=== PATIENT | male | born 1955 | race Caucasian/White ===

== ENCOUNTER 2021-05-20 10:47 | Inpatient (IN) | payer MEDICARE ==
[2021-05-20] MEDS ORDERED: Dexamethasone 10 MG/ML SDV IVPUSH ONE (11:29)
--- NOTE | 2021-05-20 11:31 | EDM.PDOC ---
ED HPI GENERAL MEDICAL PROBLEM - General Chief Complaint: Respiratory Problem Stated Complaint: HARD TO BREATH Time Seen by Provider: 05/20/21 11:16 Source of Information: Reports: Patient History Limitations: Reports: No Limitations - History of Present Illness INITIAL COMMENTS - FREE TEXT/NARRATIVE: Patient is a 66-year-old male who presents today for shortness of breath and diffuse body aches. Patient concerned he has Covid. Patient is unvaccinated. Patient dates he been coughing as well but not any fevers or chills. He denies any smoking history. Patient denies any abdominal pain nausea vomiting states has been able to tolerate large amounts of fluids. abdomen Pain Score (Numeric/FACES): 8 - Related Data Allergies Allergy/AdvReac Type Severity Reaction Status Date / Time No Known Allergies Allergy Verified 05/20/21 11:22 Home Meds: Home Meds amLODIPine [Norvasc] 2.5 mg PO DAILY 05/20/21 [History] Past Medical History - Past Health History Medical/Surgical History: Denies Medical/Surgical History Cardiovascular History: Reports: Hypertension Social & Family History - Tobacco Use Tobacco Use Status *Q: Never Tobacco User - Recreational Drug Use Recreational Drug Use: No ED ROS GENERAL - Review of Systems Review Of Systems: See Below Constitutional: Reports: No Symptoms HEENT: Reports: No Symptoms Respiratory: Reports: Shortness of Breath Cardiovascular: Reports: No Symptoms Endocrine: Reports: No Symptoms GI/Abdominal: Reports: No Symptoms : Reports: No Symptoms Musculoskeletal: Reports: No Symptoms Skin: Reports: No Symptoms Neurological: Reports: No Symptoms Psychiatric: Reports: No Symptoms Hematologic/Lymphatic: Reports: No Symptoms Immunologic: Reports: No Symptoms ED EXAM, GENERAL - Physical Exam Exam: See Below Exam Limited By: No Limitations General Appearance: Alert, WD/WN, No Apparent Distress Throat/Mouth: Normal Inspection Neck: Normal Inspection Respiratory/Chest: No Respiratory Distress, Lungs Clear, Normal Breath Sounds Cardiovascular: Normal Peripheral Pulses, Regular Rate, Rhythm GI/Abdominal: Normal Bowel Sounds, Soft, Non-Tender Extremities: Normal Inspection Neurological: Alert, Oriented, Normal Cognition #1 Interpretation EKG Date: 05/20/21 Time: 11:18 Rhythm: Other (sinus tach) Rate (Beats/Min): 101 ST-T: Normal Course - Vital Signs Last Recorded V/S: Last Vital Signs Temp 97.1 F 05/20/21 11:19 Pulse 98 05/20/21 12:17 Resp 18 05/20/21 11:19 BP 140/86 05/20/21 12:17 Pulse Ox 96 05/20/21 12:17 - Orders/Labs/Meds Orders: Active Orders 24 hr Category Date Time Status Patient Status [ADT] Routine ADT 05/20/21 12:57 Ordered CORONAVIRUS COVID-19 JOANN [MOLEC] Stat Lab 05/20/21 12:07 Received Labs: Laboratory Tests 05/20/21 05/20/21 Range/Units 12:07 12:07 WBC 6.83 (4.0-11.0) K/uL RBC 4.82 (4.50-5.90) M/uL Hgb 14.6 (13.0-17.0) g/dL Hct 41.7 (38.0-50.0) % MCV 86.5 (80.0-98.0) fL MCH 30.3 (27.0-32.0) pg MCHC 35.0 (31.0-37.0) g/dL RDW Std Deviation 44.3 (28.0-62.0) fl RDW Coeff of Luh 14 (11.0-15.0) % Plt Count 257 (150-400) K/uL MPV 9.70 (7.40-12.00) fL Neut % (Auto) 80.9 H (48.0-80.0) % Lymph % (Auto) 9.5 L (16.0-40.0) % [place] % (Auto) 9.5 (0.0-15.0) % Eos % (Auto) 0.0 (0.0-7.0) % Baso % (Auto) 0.1 (0.0-1.5) % Neut # (Auto) 5.5 (1.4-5.7) K/uL Lymph # (Auto) 0.7 (0.6-2.4) K/uL [place] # (Auto) 0.7 (0.0-0.8) K/uL Eos # (Auto) 0.0 (0.0-0.7) K/uL Baso # (Auto) 0.0 (0.0-0.1) K/uL Nucleated RBC % 0.0 /100WBC Nucleated RBCs # 0 K/uL Sodium 129 L (136-148) mmol/L Potassium 4.6 (3.5-5.1) mmol/L Chloride 93 L (98-107) mmol/L Carbon Dioxide 29.4 (21.0-32.0) mmol/L BUN 12 (7.0-18.0) mg/dL Creatinine 1.2 (0.8-1.3) mg/dL Est Cr Clr Drug Dosing 55.85 mL/min Estimated GFR (MDRD) > 60.0 ml/min Glucose 115 H (74-106) mg/dL Calcium 8.1 L (8.5-10.1) mg/dL Phosphorus 3.5 (2.6-4.7) mg/dL Magnesium 2.3 (1.8-2.4) mg/dL Total Bilirubin 0.5 (0.2-1.0) mg/dL AST 38 H (15-37) IU/L ALT 38 (14-63) IU/L Alkaline Phosphatase 67 (46-116) U/L Troponin I < 0.050 (0.000-0.056) ng/mL Total Protein 7.1 (6.4-8.2) g/dL Albumin 3.1 L (3.4-5.0) g/dL Globulin 4.0 (2.6-4.0) g/dL Albumin/Globulin Ratio 0.8 L (0.9-1.6) Lipase 90 (73-393) U/L Meds: Medications Discontinued Medications Generic Name Dose Route Start Last Admin Trade Name Freq PRN Reason Stop Dose Admin Dexamethasone 10 mg 05/20/21 11:29 05/20/21 12:14 Dexamethasone 10 Mg/Ml Sdv IVPUSH 05/20/21 11:30 10 mg ONETIME ONE Administration - Re-Assessments/Exams Free Text/Narrative Re-Assessment/Exam: 05/20/21 12:57 Patient oxygen level is still 95% nasal cannula. Patient will be admitted to the hospital for his hypoxia. Departure - Departure Time of Disposition: 12:58 Disposition: Admitted As Inpatient 65 Condition: Good Clinical Impression: Hypoxia, COVID - Discharge Information *PRESCRIPTION DRUG MONITORING PROGRAM REVIEWED*: Not Applicable *COPY OF PRESCRIPTION DRUG MONITORING REPORT IN PATIENT TL: Not Applicable Referrals: PCP,None [Primary Care Provider] - Forms: ED Department Discharge Sepsis Event Note (ED) - Evaluation Sepsis Screening Result: No Definite Risk - Focused Exam Vital Signs: Vital Signs Temp Pulse Resp BP Pulse Ox 05/20/21 12:17 98 140/86 96 05/20/21 11:48 103 H 145/86 H 95 05/20/21 11:20 95 05/20/21 11:19 97.1 F 115 H 18 134/86 88 L - My Orders Last 24 Hours: My Active Orders 05/20/21 12:07 CORONAVIRUS COVID-19 JOANN [MOLEC] Stat 05/20/21 12:57 Patient Status [ADT] Routine - Assessment/Plan Last 24 Hours: My Active Orders 05/20/21 12:07 CORONAVIRUS COVID-19 JOANN [MOLEC] Stat 05/20/21 12:57 Patient Status [ADT] Routine Plan: Patient is a 66-year-old male who presents today for body aches cough and concerns of Covid. Will obtain labs x-ray Covid and give Decadron and likely admit this patient satting 80% room air requiring 2 L of nasal cannula now up to 98%.
[2021-05-20 12:39] LABS: BLOOD UREA NITROGEN,BUN 12 mg/dL (7.0-18.0); CARBON DIOXIDE,CO2 29.4 mmol/L (21.0-32.0); CHLORIDE,CL 93 mmol/L (98-107); GLUCOSE RANDOM 115 mg/dL (74-106); LIPASE 90 U/L (73-393); POTASSIUM,K 4.6 mmol/L (3.5-5.1); SODIUM,NA 129 mmol/L (136-148)
--- NOTE | 2021-05-20 12:46 | CR ---
Indication: Cough. Evaluate for COVID-19 pneumonia. Technique: Chest one-view portable upright. Comparison: None. Findings: There is a linear opacity at the left lung base, which could represent atelectasis or scar. The imaging findings are not typical for COVID-19 pneumonia. Similar findings are seen in the right lung base. Heart size and pulmonary vasculature within normal limits. Lateral costophrenic sulci are sharp. Impression: 1. Bibasilar opacities, which could represent atelectasis or scarring. 2. Imaging findings are not typical for COVID-19 pneumonia. Dictated by Tucker Butler MD @ 05/20/2021 12:46:[address] Tucker Butler @ May 20 2021 12:46PM
[2021-05-20] MEDS ORDERED: Sodium Chloride 0.9% 500 ML IV ONE (17:00)
[2021-05-20] MEDS ORDERED: Acetaminophen 325 MG Tab PO PRN (17:01)
--- NOTE | 2021-05-20 17:10 | PCM.HP.2 ---
H&P History of Present Illness - General Date of Service: 05/20/21 Admit Problem/Dx: Admission Diagnosis/Problem Admission Diagnosis/Problem Hypoxia - History of Present Illness Initial Comments - Free Text/Narative: 66 yo male with pmh of hypertension who presented to the ED with complaints of shortness of breath, cough, chills, and fatigue for six days. Chest x-ray reports bibasilar opacities. Patient was requring 2 L O2 via NC to keep sats above 90%. abdomen Pain Score (Numeric/FACES): 8 - Related Data Allergies/Adverse Reactions: Allergies Allergy/AdvReac Type Severity Reaction Status Date / Time Penicillins Allergy Rash Verified 05/20/21 16:52 Home Medications: Home Meds amLODIPine [Norvasc] 2.5 mg PO DAILY 05/20/21 [History] Past Medical History - Past Health History Medical/Surgical History: Denies Medical/Surgical History HEENT History: Reports: Hard of Hearing Cardiovascular History: Reports: Hypertension Social & Family History - Family History Family Medical History: No Pertinent Family History - Tobacco Use Tobacco Use Status *Q: Former Tobacco User Used Tobacco, but Quit: Yes Month/Year Tobacco Last Used: 1989 Second Hand Smoke Exposure: No - Caffeine Use Caffeine Use: Reports: Coffee - Alcohol Use Days Per Week of Alcohol Use: 7 Number of Drinks Per Day: 5 Total Drinks Per Week: 35 Date of Last Drink: 05/19/21 Time of Last Drink: 21:00 - Recreational Drug Use Recreational Drug Use: No H&P Review of Systems - Review of Systems: Review Of Systems: Comprehensive ROS is negative, except as noted in HPI. Exam - Exam Exam: See Below - Vital Signs Vital Signs: Last Vital Signs Temp 36.6 C 05/20/21 16:30 Pulse 90 05/20/21 16:30 Resp 16 05/20/21 16:30 BP 140/84 05/20/21 16:30 Pulse Ox 92 L 05/20/21 16:30 Weight: 73.709 kg - Exam General: Alert, Oriented HEENT: Mucosa Moist & [place] Lungs: Normal Respiratory Effort, Rhonchi Cardiovascular: Regular Rate, Regular Rhythm GI/Abdominal Exam: Normal Bowel Sounds, Soft, Non-Tender Extremities: Non-Tender, No Pedal Edema Skin: Warm, Dry, Intact Neurological: Cranial Nerves Intact. No: Focal Deficit - Patient Data Lab Results Last 24 hrs: Laboratory Results - last 24 hr 05/20/21 05/20/21 05/20/21 Range/Units 12:07 12:07 12:07 WBC 6.83 (4.0-11.0) K/uL RBC 4.82 (4.50-5.90) M/uL Hgb 14.6 (13.0-17.0) g/dL Hct 41.7 (38.0-50.0) % MCV 86.5 (80.0-98.0) fL MCH 30.3 (27.0-32.0) pg MCHC 35.0 (31.0-37.0) g/dL RDW Std Deviation 44.3 (28.0-62.0) fl RDW Coeff of Luh 14 (11.0-15.0) % Plt Count 257 (150-400) K/uL MPV 9.70 (7.40-12.00) fL Neut % (Auto) 80.9 H (48.0-80.0) % Lymph % (Auto) 9.5 L (16.0-40.0) % [place] % (Auto) 9.5 (0.0-15.0) % Eos % (Auto) 0.0 (0.0-7.0) % Baso % (Auto) 0.1 (0.0-1.5) % Neut # (Auto) 5.5 (1.4-5.7) K/uL Lymph # (Auto) 0.7 (0.6-2.4) K/uL [place] # (Auto) 0.7 (0.0-0.8) K/uL Eos # (Auto) 0.0 (0.0-0.7) K/uL Baso # (Auto) 0.0 (0.0-0.1) K/uL Nucleated RBC % 0.0 /100WBC Nucleated RBCs # 0 K/uL Sodium 129 L (136-148) mmol/L Potassium 4.6 (3.5-5.1) mmol/L Chloride 93 L (98-107) mmol/L Carbon Dioxide 29.4 (21.0-32.0) mmol/L BUN 12 (7.0-18.0) mg/dL Creatinine 1.2 (0.8-1.3) mg/dL Est Cr Clr Drug Dosing 55.85 mL/min Estimated GFR (MDRD) > 60.0 ml/min Glucose 115 H (74-106) mg/dL Calcium 8.1 L (8.5-10.1) mg/dL Phosphorus 3.5 (2.6-4.7) mg/dL Magnesium 2.3 (1.8-2.4) mg/dL Total Bilirubin 0.5 (0.2-1.0) mg/dL AST 38 H (15-37) IU/L ALT 38 (14-63) IU/L Alkaline Phosphatase 67 (46-116) U/L Troponin I < 0.050 (0.000-0.056) ng/mL Total Protein 7.1 (6.4-8.2) g/dL Albumin 3.1 L (3.4-5.0) g/dL Globulin 4.0 (2.6-4.0) g/dL Albumin/Globulin Ratio 0.8 L (0.9-1.6) Lipase 90 (73-393) U/L SARS-CoV-2 RNA (JOANN) POSITIVE H (NEGATIVE) Result Diagrams: 05/20/21 12:07 05/20/21 12:07 Sepsis Event Note - Evaluation Sepsis Screening Result: No Definite Risk - Focused Exam Vital Signs: Vital Signs Temp Pulse Resp BP Pulse Ox 05/20/21 16:30 36.6 C 90 16 140/84 92 L 05/20/21 15:23 36.5 C 90 16 146/81 H 92 L 05/20/21 14:16 85 16 128/86 97 05/20/21 12:17 98 140/86 96 05/20/21 11:48 103 H 145/86 H 95 05/20/21 11:20 95 05/20/21 11:19 36.2 C 115 H 18 134/86 88 L Problem List Initiated/Reviewed/Updated: Yes Orders Last 24hrs: Active Orders 24 hr Category Date Time Status Patient Status [ADT] Routine ADT 05/20/21 12:57 Active Antiembolic Devices [RC] PER UNIT ROUTINE Care 05/20/21 17:04 Ordered Oxygen Therapy [RC] PRN Care 05/20/21 17:01 Ordered Up ad Dara [RC] ASDIRECTED Care 05/20/21 17:01 Ordered VTE/DVT Education [RC] PER UNIT ROUTINE Care 05/20/21 17:01 Ordered Vital Signs [RC] Q4H Care 05/20/21 17:01 Ordered Regular Diet [DIET] Diet 05/20/21 Dinner Active CBC WITH AUTO DIFF [HEME] AM Lab 05/21/21 05:11 Ordered CBC WITH AUTO DIFF [HEME] AM Lab 05/22/21 05:11 Ordered CBC WITH AUTO DIFF [HEME] AM Lab 05/23/21 05:11 Ordered CBC WITH AUTO DIFF [HEME] AM Lab 05/24/21 05:11 Ordered CBC WITH AUTO DIFF [HEME] AM Lab 05/25/21 05:11 Ordered COMPREHENSIVE METABOLIC PN,CMP [CHEM] AM Lab 05/21/21 05:11 Ordered COMPREHENSIVE METABOLIC PN,CMP [CHEM] AM Lab 05/22/21 05:11 Ordered COMPREHENSIVE METABOLIC PN,CMP [CHEM] AM Lab 05/23/21 05:11 Ordered COMPREHENSIVE METABOLIC PN,CMP [CHEM] AM Lab 05/24/21 05:11 Ordered COMPREHENSIVE METABOLIC PN,CMP [CHEM] AM Lab 05/25/21 05:11 Ordered Acetaminophen [TylenoL] Med 05/20/21 17:01 Ordered 650 mg PO Q4H PRN Enoxaparin [Lovenox] Med 05/20/21 17:15 Ordered 40 mg SUBCUT Q24H Remdesivir 100 mg Med 05/21/21 17:00 Ordered Sodium Chloride 0.9% [Normal Saline] 100 ml IV Q24H Remdesivir 200 mg Med 05/20/21 16:56 Ordered Sodium Chloride 0.9% [Normal Saline] 250 ml IV ONETIME Sodium Chloride 0.9% [Normal Saline] 500 ml Med 05/20/21 17:00 Ordered IV .BOLUS amLODIPine [Norvasc] Med 05/21/21 09:00 Ordered 2.5 mg PO DAILY dexAMETHasone Med 05/21/21 09:00 Ordered 6 mg PO DAILY Sequential Compression Device [OM.PC] Per Unit Routine Oth 05/20/21 17:02 Ordered Resuscitation Status Routine Resus Stat 05/20/21 17:01 Ordered Medication Orders Acetaminophen (Acetaminophen 325 Mg Tab) 650 mg PO Q4H PRN PRN Reason: Pain (Mild 1-3)/fever Amlodipine Besylate (Amlodipine 2.5 Mg Tab) 2.5 mg PO DAILY MAKAYLA Dexamethasone (Dexamethasone 4 Mg Tab) 6 mg PO DAILY [facility] Enoxaparin Sodium (Enoxaparin 40 Mg/0.4 Ml Syringe) 40 mg SUBCUT Q24H [facility] Remdesivir 200 mg/ Sodium (Chloride) 250 mls @ 250 mls/hr IV ONETIME ONE Stop: 05/20/21 16:57 Remdesivir 100 mg/ Sodium (Chloride) 100 mls @ 100 mls/hr IV Q24H MAKAYLA Stop: 05/24/21 17:59 Sodium Chloride (Normal Saline) 500 mls @ 125 mls/hr IV .BOLUS [facility] Assessment/Plan Comment:: 66 yo mal admitted for acute hypoxic respiratory failure due to COVID viral pneumona. We will treat with dexamthasone and remdesivir. Will place on lovenox for DVT prophylaxis.
[2021-05-20] MEDS ORDERED: REMDESIVIR 200 MG in Sodium Chloride 0.9% 250 ML IV ONE ×2 (17:30→20:00)
[2021-05-20] MEDS: Enoxaparin 40 MG/0.4 ML Syringe SUBCUT SCH (17:58)
[2021-05-21 06:52] LABS: BLOOD UREA NITROGEN,BUN 15 mg/dL (7.0-18.0); CARBON DIOXIDE,CO2 26.5 mmol/L (21.0-32.0); CHLORIDE,CL 97 mmol/L (98-107); GLUCOSE RANDOM 136 mg/dL (74-106); POTASSIUM,K 4.4 mmol/L (3.5-5.1); SODIUM,NA 133 mmol/L (136-148)
[2021-05-21] MEDS: amLODIPine 2.5 MG Tab PO SCH (09:26)
[2021-05-21] MEDS: Dexamethasone 4 MG Tab PO SCH (09:26)
--- NOTE | 2021-05-21 16:24 | PCM.PN ---
- General Info Date of Service: 05/21/21 Admission Dx/Problem (Free Text): Admission Diagnosis/Problem Admission Diagnosis/Problem Hypoxia Subjective Update: Patient seen at bedside, no acute distress, feels better today but continues to have generalized weakness and fatigue. Functional Status: Reports: Tolerating Diet, Ambulating - Review of Systems General: Reports: Weakness, Fatigue, Malaise. Denies: Fever Pulmonary: Reports: Cough, Sputum. Denies: Shortness of Breath Gastrointestinal: Denies: Abdominal Pain, Constipation Genitourinary: Denies: Dysuria, Frequency, Burning Musculoskeletal: Denies: Neck Pain, Shoulder Pain, Arm Pain Skin: Denies: Cyanosis, Jaundice, Mottled - Patient Data Vitals - Most Recent: Last Vital Signs Temp 36.7 C 05/21/21 12:33 Pulse 81 05/21/21 12:33 Resp 18 05/21/21 12:33 BP 133/74 05/21/21 12:33 Pulse Ox 92 L 05/21/21 12:33 Weight - Most Recent: 73.709 kg I&O - Last 24 Hours: Intake & Output 05/21/21 05/21/21 05/21/21 06:59 14:59 22:59 Intake Total 1650 Balance 1650 Lab Results Last 24 Hours: Laboratory Results - last 24 hr 05/21/21 05/21/21 Range/Units 06:00 06:00 WBC 4.43 (4.0-11.0) K/uL RBC 4.77 (4.50-5.90) M/uL Hgb 14.2 (13.0-17.0) g/dL Hct 41.3 (38.0-50.0) % MCV 86.6 (80.0-98.0) fL MCH 29.8 (27.0-32.0) pg MCHC 34.4 (31.0-37.0) g/dL RDW Std Deviation 44.3 (28.0-62.0) fl RDW Coeff of Luh 14 (11.0-15.0) % Plt Count 299 (150-400) K/uL MPV 9.90 (7.40-12.00) fL Neut % (Auto) 75.2 (48.0-80.0) % Lymph % (Auto) 14.2 L (16.0-40.0) % [place] % (Auto) 10.6 (0.0-15.0) % Eos % (Auto) 0.0 (0.0-7.0) % Baso % (Auto) 0.0 (0.0-1.5) % Neut # (Auto) 3.3 (1.4-5.7) K/uL Lymph # (Auto) 0.6 (0.6-2.4) K/uL [place] # (Auto) 0.5 (0.0-0.8) K/uL Eos # (Auto) 0.0 (0.0-0.7) K/uL Baso # (Auto) 0.0 (0.0-0.1) K/uL Nucleated RBC % 0.0 /100WBC Nucleated RBCs # 0 K/uL Sodium 133 L (136-148) mmol/L Potassium 4.4 (3.5-5.1) mmol/L Chloride 97 L (98-107) mmol/L Carbon Dioxide 26.5 (21.0-32.0) mmol/L BUN 15 (7.0-18.0) mg/dL Creatinine 1.0 (0.8-1.3) mg/dL Est Cr Clr Drug Dosing 67.02 mL/min Estimated GFR (MDRD) > 60.0 ml/min Glucose 136 H (74-106) mg/dL Calcium 8.1 L (8.5-10.1) mg/dL Total Bilirubin 0.4 (0.2-1.0) mg/dL AST 31 (15-37) IU/L ALT 34 (14-63) IU/L Alkaline Phosphatase 64 (46-116) U/L Total Protein 6.9 (6.4-8.2) g/dL Albumin 2.8 L (3.4-5.0) g/dL Globulin 4.1 H (2.6-4.0) g/dL Albumin/Globulin Ratio 0.7 L (0.9-1.6) Med Orders - Current: Current Medications Acetaminophen (Acetaminophen 325 Mg Tab) 650 mg PO Q4H PRN PRN Reason: Pain (Mild 1-3)/fever Amlodipine Besylate (Amlodipine 2.5 Mg Tab) 2.5 mg PO DAILY MAKAYLA Last Admin: 05/21/21 09:26 Dose: 2.5 mg Documented by: Dexamethasone (Dexamethasone 4 Mg Tab) 6 mg PO DAILY [facility] Last Admin: 05/21/21 09:26 Dose: 6 mg Documented by: Enoxaparin Sodium (Enoxaparin 40 Mg/0.4 Ml Syringe) 40 mg SUBCUT Q24H [facility] Last Admin: 05/20/21 17:58 Dose: 40 mg Documented by: Guaifenesin/Codeine Phosphate (Codeine/Guaifenesin 10-100 Mg/5 Ml Syrup 5 Ml Cup) 5 ml PO Q4H PRN PRN Reason: Cough Remdesivir 100 mg/ Sodium (Chloride) 100 mls @ 100 mls/hr IV Q24H [facility] Stop: 05/24/21 17:59 Discontinued Medications Dexamethasone (Dexamethasone 10 Mg/Ml Sdv) 10 mg IVPUSH ONETIME ONE Stop: 05/20/21 11:30 Last Admin: 05/20/21 12:14 Dose: 10 mg Documented by: Remdesivir 200 mg/ Sodium (Chloride) 250 mls @ 250 mls/hr IV ONETIME ONE Stop: 05/20/21 18:29 Last Admin: 05/20/21 18:54 Dose: Not Given Documented by: Sodium Chloride (Normal Saline) 500 mls @ 125 mls/hr IV .BOLUS ONE Stop: 05/20/21 20:59 Last Admin: 05/20/21 17:58 Dose: 125 mls/hr Documented by: Remdesivir 200 mg/ Sodium (Chloride) 250 mls @ 250 mls/hr IV ONETIME ONE Stop: 05/20/21 20:59 Last Admin: 05/20/21 19:49 Dose: 250 mls/hr Documented by: - Exam Quality Assessment: Supplemental Oxygen General: Alert, Oriented Lungs: Normal Respiratory Effort, Decreased Breath Sounds Cardiovascular: Regular Rate, Regular Rhythm GI/Abdominal Exam: Normal Bowel Sounds, Soft, Non-Tender - Patient Data Lab Results Last 24 hrs: Laboratory Results - last 24 hr 05/21/21 05/21/21 Range/Units 06:00 06:00 WBC 4.43 (4.0-11.0) K/uL RBC 4.77 (4.50-5.90) M/uL Hgb 14.2 (13.0-17.0) g/dL Hct 41.3 (38.0-50.0) % MCV 86.6 (80.0-98.0) fL MCH 29.8 (27.0-32.0) pg MCHC 34.4 (31.0-37.0) g/dL RDW Std Deviation 44.3 (28.0-62.0) fl RDW Coeff of Luh 14 (11.0-15.0) % Plt Count 299 (150-400) K/uL MPV 9.90 (7.40-12.00) fL Neut % (Auto) 75.2 (48.0-80.0) % Lymph % (Auto) 14.2 L (16.0-40.0) % [place] % (Auto) 10.6 (0.0-15.0) % Eos % (Auto) 0.0 (0.0-7.0) % Baso % (Auto) 0.0 (0.0-1.5) % Neut # (Auto) 3.3 (1.4-5.7) K/uL Lymph # (Auto) 0.6 (0.6-2.4) K/uL [place] # (Auto) 0.5 (0.0-0.8) K/uL Eos # (Auto) 0.0 (0.0-0.7) K/uL Baso # (Auto) 0.0 (0.0-0.1) K/uL Nucleated RBC % 0.0 /100WBC Nucleated RBCs # 0 K/uL Sodium 133 L (136-148) mmol/L Potassium 4.4 (3.5-5.1) mmol/L Chloride 97 L (98-107) mmol/L Carbon Dioxide 26.5 (21.0-32.0) mmol/L BUN 15 (7.0-18.0) mg/dL Creatinine 1.0 (0.8-1.3) mg/dL Est Cr Clr Drug Dosing 67.02 mL/min Estimated GFR (MDRD) > 60.0 ml/min Glucose 136 H (74-106) mg/dL Calcium 8.1 L (8.5-10.1) mg/dL Total Bilirubin 0.4 (0.2-1.0) mg/dL AST 31 (15-37) IU/L ALT 34 (14-63) IU/L Alkaline Phosphatase 64 (46-116) U/L Total Protein 6.9 (6.4-8.2) g/dL Albumin 2.8 L (3.4-5.0) g/dL Globulin 4.1 H (2.6-4.0) g/dL Albumin/Globulin Ratio 0.7 L (0.9-1.6) Result Diagrams: 05/21/21 06:00 05/21/21 06:00 Sepsis Event Note - Evaluation Sepsis Screening Result: No Definite Risk - Focused Exam Vital Signs: Vital Signs Temp Pulse Resp BP BP Pulse Ox 05/21/21 12:33 36.7 C 81 18 133/74 92 L 05/21/21 09:26 123/81 05/21/21 07:45 36.7 C 76 19 123/81 91 L 05/21/21 05:00 35.8 C L 74 19 119/70 91 L - Problem List & Annotations (1) COVID SNOMED Code(s): 052665391 Code(s): U07.1 - COVID-19 Status: Acute Current Visit: Yes (2) Hypoxia SNOMED Code(s): 810398466 Code(s): R09.02 - HYPOXEMIA Status: Acute Current Visit: Yes - Problem List Review Problem List Initiated/Reviewed/Updated: Yes - My Orders Last 24 Hours: My Active Orders 05/21/21 12:11 Codeine/guaiFENesin [Robitussin AC] 5 ml PO Q4H PRN - Plan Plan:: 66 yo mal admitted for acute hypoxic respiratory failure due to COVID viral pneumona. Continue oxygenation via nasal cannula currently patient requiring 2 to 3 L of oxygen will try to wean off the oxygen as tolerated We will treat with dexamthasone and remdesivir. Continue supportive care Combivent as needed for shortness of breath Will place on lovenox for DVT prophylaxis.
[2021-05-21] MEDS: REMDESIVIR 100 MG in Sodium Chloride 0.9% 100 ML IV SCH (16:37)
[2021-05-21] MEDS: Enoxaparin 40 MG/0.4 ML Syringe SUBCUT SCH (16:40)
[2021-05-21] MEDS: Codeine/guaiFENesin 10-100 MG/5 ML Syrup 5 ML Cup PO PRN ×2 (16:40→21:03)
[2021-05-22 07:12] LABS: BLOOD UREA NITROGEN,BUN 22 mg/dL (7.0-18.0); CARBON DIOXIDE,CO2 28.4 mmol/L (21.0-32.0); CHLORIDE,CL 99 mmol/L (98-107); GLUCOSE RANDOM 123 mg/dL (74-106); SODIUM,NA 135 mmol/L (136-148)
[2021-05-22] MEDS: amLODIPine 2.5 MG Tab PO SCH (08:36)
[2021-05-22] MEDS: Dexamethasone 4 MG Tab PO SCH (08:37)
--- NOTE | 2021-05-22 15:34 | PCM.PN ---
- General Info Date of Service: 05/22/21 Admission Dx/Problem (Free Text): Admission Diagnosis/Problem Admission Diagnosis/Problem Hypoxia Subjective Update: Patient seen at bedside, no acute distress, feels better today but continues to have generalized weakness and fatigue. Needs 0.52 L of oxygen Functional Status: Reports: Pain Controlled, Tolerating Diet, Ambulating - Review of Systems General: Reports: Weakness. Denies: Fever, Fatigue, Malaise Pulmonary: Denies: Shortness of Breath, Pleuritic Chest Pain Cardiovascular: Denies: Chest Pain, Palpitations Gastrointestinal: Denies: Abdominal Pain, Constipation, Difficulty Swallowing Genitourinary: Denies: Dysuria, Frequency, Burning Musculoskeletal: Denies: Neck Pain, Shoulder Pain Skin: Denies: Cyanosis, Jaundice, Mottled Neurological: Denies: Confusion, Dizziness, Headache - Patient Data Vitals - Most Recent: Last Vital Signs Temp 36.8 C 05/22/21 12:00 Pulse 75 05/22/21 12:00 Resp 18 05/22/21 12:00 BP 123/74 05/22/21 12:00 Pulse Ox 91 L 05/22/21 12:00 Weight - Most Recent: 73.709 kg I&O - Last 24 Hours: Intake & Output 05/22/21 05/22/21 05/22/21 06:59 14:59 22:59 Intake Total 950 Output Total 450 Balance 500 Lab Results Last 24 Hours: Laboratory Results - last 24 hr 05/22/21 05/22/21 Range/Units 05:55 05:55 WBC 8.96 (4.0-11.0) K/uL RBC 4.63 (4.50-5.90) M/uL Hgb 13.9 (13.0-17.0) g/dL Hct 40.5 (38.0-50.0) % MCV 87.5 (80.0-98.0) fL MCH 30.0 (27.0-32.0) pg MCHC 34.3 (31.0-37.0) g/dL RDW Std Deviation 45.4 (28.0-62.0) fl RDW Coeff of Luh 14 (11.0-15.0) % Plt Count 372 (150-400) K/uL MPV 10.00 (7.40-12.00) fL Neut % (Auto) 83.0 H (48.0-80.0) % Lymph % (Auto) 8.5 L (16.0-40.0) % [place] % (Auto) 8.4 (0.0-15.0) % Eos % (Auto) 0.0 (0.0-7.0) % Baso % (Auto) 0.1 (0.0-1.5) % Neut # (Auto) 7.4 H (1.4-5.7) K/uL Lymph # (Auto) 0.8 (0.6-2.4) K/uL [place] # (Auto) 0.8 (0.0-0.8) K/uL Eos # (Auto) 0.0 (0.0-0.7) K/uL Baso # (Auto) 0.0 (0.0-0.1) K/uL Nucleated RBC % 0.0 /100WBC Nucleated RBCs # 0 K/uL Sodium 135 L (136-148) mmol/L Potassium 5.0 (3.5-5.1) mmol/L Chloride 99 (98-107) mmol/L Carbon Dioxide 28.4 (21.0-32.0) mmol/L BUN 22 H (7.0-18.0) mg/dL Creatinine 1.1 (0.8-1.3) mg/dL Est Cr Clr Drug Dosing 60.93 mL/min Estimated GFR (MDRD) > 60.0 ml/min Glucose 123 H (74-106) mg/dL Calcium 8.0 L (8.5-10.1) mg/dL Total Bilirubin 0.3 (0.2-1.0) mg/dL AST 31 (15-37) IU/L ALT 43 (14-63) IU/L Alkaline Phosphatase 64 (46-116) U/L Total Protein 6.5 (6.4-8.2) g/dL Albumin 2.8 L (3.4-5.0) g/dL Globulin 3.7 (2.6-4.0) g/dL Albumin/Globulin Ratio 0.8 L (0.9-1.6) Med Orders - Current: Current Medications Acetaminophen (Acetaminophen 325 Mg Tab) 650 mg PO Q4H PRN PRN Reason: Pain (Mild 1-3)/fever Amlodipine Besylate (Amlodipine 2.5 Mg Tab) 2.5 mg PO DAILY [facility] Last Admin: 05/22/21 08:36 Dose: 2.5 mg Documented by: Dexamethasone (Dexamethasone 4 Mg Tab) 6 mg PO DAILY [facility] Last Admin: 05/22/21 08:37 Dose: 6 mg Documented by: Enoxaparin Sodium (Enoxaparin 40 Mg/0.4 Ml Syringe) 40 mg SUBCUT Q24H [facility] Last Admin: 05/21/21 16:40 Dose: 40 mg Documented by: Guaifenesin/Codeine Phosphate (Codeine/Guaifenesin 10-100 Mg/5 Ml Syrup 5 Ml Cup) 5 ml PO Q4H PRN PRN Reason: Cough Last Admin: 05/21/21 21:03 Dose: 5 ml Documented by: Remdesivir 100 mg/ Sodium (Chloride) 100 mls @ 100 mls/hr IV Q24H [facility] Stop: 05/24/21 17:59 Last Admin: 05/21/21 16:37 Dose: 100 mls/hr Documented by: Discontinued Medications Dexamethasone (Dexamethasone 10 Mg/Ml Sdv) 10 mg IVPUSH ONETIME ONE Stop: 05/20/21 11:30 Last Admin: 05/20/21 12:14 Dose: 10 mg Documented by: Remdesivir 200 mg/ Sodium (Chloride) 250 mls @ 250 mls/hr IV ONETIME ONE Stop: 05/20/21 18:29 Last Admin: 05/20/21 18:54 Dose: Not Given Documented by: Sodium Chloride (Normal Saline) 500 mls @ 125 mls/hr IV .BOLUS ONE Stop: 05/20/21 20:59 Last Admin: 05/20/21 17:58 Dose: 125 mls/hr Documented by: Remdesivir 200 mg/ Sodium (Chloride) 250 mls @ 250 mls/hr IV ONETIME ONE Stop: 05/20/21 20:59 Last Admin: 05/20/21 19:49 Dose: 250 mls/hr Documented by: - Exam Quality Assessment: Supplemental Oxygen General: Alert, Oriented Lungs: Clear to Auscultation, Normal Respiratory Effort Cardiovascular: Regular Rate, Regular Rhythm GI/Abdominal Exam: Normal Bowel Sounds, Soft Extremities: Normal Inspection, Normal Range of Motion - Patient Data Lab Results Last 24 hrs: Laboratory Results - last 24 hr 05/22/21 05/22/21 Range/Units 05:55 05:55 WBC 8.96 (4.0-11.0) K/uL RBC 4.63 (4.50-5.90) M/uL Hgb 13.9 (13.0-17.0) g/dL Hct 40.5 (38.0-50.0) % MCV 87.5 (80.0-98.0) fL MCH 30.0 (27.0-32.0) pg MCHC 34.3 (31.0-37.0) g/dL RDW Std Deviation 45.4 (28.0-62.0) fl RDW Coeff of Luh 14 (11.0-15.0) % Plt Count 372 (150-400) K/uL MPV 10.00 (7.40-12.00) fL Neut % (Auto) 83.0 H (48.0-80.0) % Lymph % (Auto) 8.5 L (16.0-40.0) % [place] % (Auto) 8.4 (0.0-15.0) % Eos % (Auto) 0.0 (0.0-7.0) % Baso % (Auto) 0.1 (0.0-1.5) % Neut # (Auto) 7.4 H (1.4-5.7) K/uL Lymph # (Auto) 0.8 (0.6-2.4) K/uL [place] # (Auto) 0.8 (0.0-0.8) K/uL Eos # (Auto) 0.0 (0.0-0.7) K/uL Baso # (Auto) 0.0 (0.0-0.1) K/uL Nucleated RBC % 0.0 /100WBC Nucleated RBCs # 0 K/uL Sodium 135 L (136-148) mmol/L Potassium 5.0 (3.5-5.1) mmol/L Chloride 99 (98-107) mmol/L Carbon Dioxide 28.4 (21.0-32.0) mmol/L BUN 22 H (7.0-18.0) mg/dL Creatinine 1.1 (0.8-1.3) mg/dL Est Cr Clr Drug Dosing 60.93 mL/min Estimated GFR (MDRD) > 60.0 ml/min Glucose 123 H (74-106) mg/dL Calcium 8.0 L (8.5-10.1) mg/dL Total Bilirubin 0.3 (0.2-1.0) mg/dL AST 31 (15-37) IU/L ALT 43 (14-63) IU/L Alkaline Phosphatase 64 (46-116) U/L Total Protein 6.5 (6.4-8.2) g/dL Albumin 2.8 L (3.4-5.0) g/dL Globulin 3.7 (2.6-4.0) g/dL Albumin/Globulin Ratio 0.8 L (0.9-1.6) Result Diagrams: 05/22/21 05:55 05/22/21 05:55 Sepsis Event Note - Evaluation Sepsis Screening Result: No Definite Risk - Focused Exam Vital Signs: Vital Signs Temp Pulse Resp BP BP Pulse Ox 05/22/21 12:00 36.8 C 75 18 123/74 91 L 05/22/21 08:36 133/76 05/22/21 08:35 36.3 C 80 18 133/76 90 L 05/22/21 06:19 36.3 C 74 19 131/81 92 L 05/22/21 05:17 69 18 93 L - Problem List & Annotations (1) COVID SNOMED Code(s): 525828846 Code(s): U07.1 - COVID-19 Status: Acute Current Visit: Yes (2) Hypoxia SNOMED Code(s): 772782662 Code(s): R09.02 - HYPOXEMIA Status: Acute Current Visit: Yes - Problem List Review Problem List Initiated/Reviewed/Updated: Yes - Plan Plan:: 66 yo mal admitted for acute hypoxic respiratory failure due to COVID viral pneumonia. Continue oxygenation via nasal cannula currently patient requiring 0.5L of oxygen will try to wean off the oxygen as tolerated cont dexamthasone and remdesivir. Continue supportive care Combivent as needed for shortness of breath Likely DC tomorrow
[2021-05-22] MEDS: REMDESIVIR 100 MG in Sodium Chloride 0.9% 100 ML IV SCH (17:05)
[2021-05-22] MEDS: Enoxaparin 40 MG/0.4 ML Syringe SUBCUT SCH (17:05)
[2021-05-23 06:28] LABS: BLOOD UREA NITROGEN,BUN 25 mg/dL (7.0-18.0); CHLORIDE,CL 100 mmol/L (98-107); GLUCOSE RANDOM 122 mg/dL (74-106); POTASSIUM,K 4.8 mmol/L (3.5-5.1); SODIUM,NA 135 mmol/L (136-148)
[2021-05-23] MEDS: Dexamethasone 4 MG Tab PO SCH (08:59)
[2021-05-23] MEDS: amLODIPine 2.5 MG Tab PO SCH (08:59)
--- NOTE | 2021-05-23 16:09 | PCM.PN ---
- General Info Date of Service: 05/23/21 Admission Dx/Problem (Free Text): Admission Diagnosis/Problem Admission Diagnosis/Problem Hypoxia Subjective Update: Patient seen at bedside, no acute distress, feels better today but continues to have generalized weakness and fatigue. Needs 1 L of oxygen Functional Status: Reports: Tolerating Diet, Ambulating - Review of Systems General: Reports: Weakness, Fatigue. Denies: Fever Pulmonary: Reports: Cough. Denies: Shortness of Breath, Pleuritic Chest Pain Cardiovascular: Reports: Dyspnea on Exertion. Denies: Chest Pain, Palpitations Gastrointestinal: Denies: Abdominal Pain, Constipation, Decreased Appetite Genitourinary: Denies: Dysuria, Frequency, Burning Musculoskeletal: Denies: Neck Pain, Shoulder Pain, Arm Pain - Patient Data Vitals - Most Recent: Last Vital Signs Temp 36.2 C 05/23/21 12:00 Pulse 68 05/23/21 12:00 Resp 16 05/23/21 12:00 BP 128/72 05/23/21 12:00 Pulse Ox 93 L 05/23/21 12:00 Weight - Most Recent: 73.709 kg I&O - Last 24 Hours: Intake & Output 05/23/21 05/23/21 05/23/21 06:59 14:59 22:59 Intake Total 800 Output Total 600 Balance 200 Lab Results Last 24 Hours: Laboratory Results - last 24 hr 05/23/21 05/23/21 Range/Units 05:43 05:43 WBC 10.45 (4.0-11.0) K/uL RBC 4.65 (4.50-5.90) M/uL Hgb 13.9 (13.0-17.0) g/dL Hct 40.7 (38.0-50.0) % MCV 87.5 (80.0-98.0) fL MCH 29.9 (27.0-32.0) pg MCHC 34.2 (31.0-37.0) g/dL RDW Std Deviation 45.4 (28.0-62.0) fl RDW Coeff of Luh 14 (11.0-15.0) % Plt Count 395 (150-400) K/uL MPV 9.90 (7.40-12.00) fL Neut % (Auto) 83.4 H (48.0-80.0) % Lymph % (Auto) 7.1 L (16.0-40.0) % [place] % (Auto) 9.4 (0.0-15.0) % Eos % (Auto) 0.0 (0.0-7.0) % Baso % (Auto) 0.1 (0.0-1.5) % Neut # (Auto) 8.7 H (1.4-5.7) K/uL Lymph # (Auto) 0.7 (0.6-2.4) K/uL [place] # (Auto) 1.0 H (0.0-0.8) K/uL Eos # (Auto) 0.0 (0.0-0.7) K/uL Baso # (Auto) 0.0 (0.0-0.1) K/uL Nucleated RBC % 0.0 /100WBC Nucleated RBCs # 0 K/uL Sodium 135 L (136-148) mmol/L Potassium 4.8 (3.5-5.1) mmol/L Chloride 100 (98-107) mmol/L Carbon Dioxide 30.0 (21.0-32.0) mmol/L BUN 25 H (7.0-18.0) mg/dL Creatinine 1.2 (0.8-1.3) mg/dL Est Cr Clr Drug Dosing 55.85 mL/min Estimated GFR (MDRD) > 60.0 ml/min Glucose 122 H (74-106) mg/dL Calcium 8.0 L (8.5-10.1) mg/dL Total Bilirubin 0.3 (0.2-1.0) mg/dL AST 33 (15-37) IU/L ALT 45 (14-63) IU/L Alkaline Phosphatase 61 (46-116) U/L Total Protein 6.1 L (6.4-8.2) g/dL Albumin 2.7 L (3.4-5.0) g/dL Globulin 3.4 (2.6-4.0) g/dL Albumin/Globulin Ratio 0.8 L (0.9-1.6) Med Orders - Current: Current Medications Acetaminophen (Acetaminophen 325 Mg Tab) 650 mg PO Q4H PRN PRN Reason: Pain (Mild 1-3)/fever Amlodipine Besylate (Amlodipine 2.5 Mg Tab) 2.5 mg PO DAILY [facility] Last Admin: 05/23/21 08:59 Dose: 2.5 mg Documented by: Dexamethasone (Dexamethasone 4 Mg Tab) 6 mg PO DAILY [facility] Last Admin: 05/23/21 08:59 Dose: 6 mg Documented by: Enoxaparin Sodium (Enoxaparin 40 Mg/0.4 Ml Syringe) 40 mg SUBCUT Q24H [facility] Last Admin: 05/22/21 17:05 Dose: 40 mg Documented by: Guaifenesin/Codeine Phosphate (Codeine/Guaifenesin 10-100 Mg/5 Ml Syrup 5 Ml Cup) 5 ml PO Q4H PRN PRN Reason: Cough Last Admin: 05/21/21 21:03 Dose: 5 ml Documented by: Remdesivir 100 mg/ Sodium (Chloride) 100 mls @ 100 mls/hr IV Q24H [facility] Stop: 05/24/21 17:59 Last Admin: 05/22/21 17:05 Dose: 100 mls/hr Documented by: Discontinued Medications Dexamethasone (Dexamethasone 10 Mg/Ml Sdv) 10 mg IVPUSH ONETIME ONE Stop: 05/20/21 11:30 Last Admin: 05/20/21 12:14 Dose: 10 mg Documented by: Remdesivir 200 mg/ Sodium (Chloride) 250 mls @ 250 mls/hr IV ONETIME ONE Stop: 05/20/21 18:29 Last Admin: 05/20/21 18:54 Dose: Not Given Documented by: Sodium Chloride (Normal Saline) 500 mls @ 125 mls/hr IV .BOLUS ONE Stop: 05/20/21 20:59 Last Admin: 05/20/21 17:58 Dose: 125 mls/hr Documented by: Remdesivir 200 mg/ Sodium (Chloride) 250 mls @ 250 mls/hr IV ONETIME ONE Stop: 05/20/21 20:59 Last Admin: 05/20/21 19:49 Dose: 250 mls/hr Documented by: - Exam Quality Assessment: Supplemental Oxygen General: Alert Neck: Supple Lungs: Normal Respiratory Effort, Decreased Breath Sounds Cardiovascular: Regular Rate, Regular Rhythm GI/Abdominal Exam: Normal Bowel Sounds, Soft, Non-Tender - Patient Data Lab Results Last 24 hrs: Laboratory Results - last 24 hr 05/23/21 05/23/21 Range/Units 05:43 05:43 WBC 10.45 (4.0-11.0) K/uL RBC 4.65 (4.50-5.90) M/uL Hgb 13.9 (13.0-17.0) g/dL Hct 40.7 (38.0-50.0) % MCV 87.5 (80.0-98.0) fL MCH 29.9 (27.0-32.0) pg MCHC 34.2 (31.0-37.0) g/dL RDW Std Deviation 45.4 (28.0-62.0) fl RDW Coeff of Luh 14 (11.0-15.0) % Plt Count 395 (150-400) K/uL MPV 9.90 (7.40-12.00) fL Neut % (Auto) 83.4 H (48.0-80.0) % Lymph % (Auto) 7.1 L (16.0-40.0) % [place] % (Auto) 9.4 (0.0-15.0) % Eos % (Auto) 0.0 (0.0-7.0) % Baso % (Auto) 0.1 (0.0-1.5) % Neut # (Auto) 8.7 H (1.4-5.7) K/uL Lymph # (Auto) 0.7 (0.6-2.4) K/uL [place] # (Auto) 1.0 H (0.0-0.8) K/uL Eos # (Auto) 0.0 (0.0-0.7) K/uL Baso # (Auto) 0.0 (0.0-0.1) K/uL Nucleated RBC % 0.0 /100WBC Nucleated RBCs # 0 K/uL Sodium 135 L (136-148) mmol/L Potassium 4.8 (3.5-5.1) mmol/L Chloride 100 (98-107) mmol/L Carbon Dioxide 30.0 (21.0-32.0) mmol/L BUN 25 H (7.0-18.0) mg/dL Creatinine 1.2 (0.8-1.3) mg/dL Est Cr Clr Drug Dosing 55.85 mL/min Estimated GFR (MDRD) > 60.0 ml/min Glucose 122 H (74-106) mg/dL Calcium 8.0 L (8.5-10.1) mg/dL Total Bilirubin 0.3 (0.2-1.0) mg/dL AST 33 (15-37) IU/L ALT 45 (14-63) IU/L Alkaline Phosphatase 61 (46-116) U/L Total Protein 6.1 L (6.4-8.2) g/dL Albumin 2.7 L (3.4-5.0) g/dL Globulin 3.4 (2.6-4.0) g/dL Albumin/Globulin Ratio 0.8 L (0.9-1.6) Result Diagrams: 05/23/21 05:43 05/23/21 05:43 Sepsis Event Note - Evaluation Sepsis Screening Result: No Definite Risk - Focused Exam Vital Signs: Vital Signs Temp Pulse Resp BP BP Pulse Ox 05/23/21 12:00 36.2 C 68 16 128/72 93 L 05/23/21 08:59 129/78 05/23/21 08:00 35.6 C L 68 15 129/72 91 L - Problem List & Annotations (1) COVID SNOMED Code(s): 165335913 Code(s): U07.1 - COVID-19 Status: Acute Current Visit: Yes (2) Hypoxia SNOMED Code(s): 672089543 Code(s): R09.02 - HYPOXEMIA Status: Acute Current Visit: Yes - Problem List Review Problem List Initiated/Reviewed/Updated: Yes - Plan Plan:: 66 yo mal admitted for acute hypoxic respiratory failure due to COVID viral pneumonia. Continue oxygenation via nasal cannula currently patient requiring 1 L of oxygen will try to wean off the oxygen as tolerated cont dexamthasone and remdesivir. Continue supportive care Combivent as needed for shortness of breath Likely DC tomorrow if we are able to wean patient off the oxygen room air if not we will have to continue complete course of remdesivir
[2021-05-23] MEDS: Enoxaparin 40 MG/0.4 ML Syringe SUBCUT SCH (17:00)
[2021-05-23] MEDS: REMDESIVIR 100 MG in Sodium Chloride 0.9% 100 ML IV SCH (17:02)
[2021-05-24 06:12] LABS: BLOOD UREA NITROGEN,BUN 23 mg/dL (7.0-18.0); CARBON DIOXIDE,CO2 27.2 mmol/L (21.0-32.0); CHLORIDE,CL 100 mmol/L (98-107); GLUCOSE RANDOM 169 mg/dL (74-106); POTASSIUM,K 4.9 mmol/L (3.5-5.1); SODIUM,NA 134 mmol/L (136-148)
[2021-05-24] MEDS: amLODIPine 2.5 MG Tab PO SCH (08:18)
[2021-05-24] MEDS: Dexamethasone 4 MG Tab PO SCH (08:18)
[2021-05-24] MEDS ORDERED: REMDESIVIR 100 MG in Sodium Chloride 0.9% 100 ML IV SCH (13:00)
--- NOTE | 2021-05-24 13:57 | PCM.DCSUM1 ---
Discharge Summary - Hospital Course Free Text/Narrative:: 66 yo male with pmh of hypertension who presented to the ED with complaints of shortness of breath, cough, chills, and fatigue for six days. Chest x-ray reports bibasilar opacities. Patient was requring 2 L O2 via NC to keep sats above 90%. Patient tested positive for covid. Was started on oxygen via NC to keep saturations above 92%. Patient was started on IV remdesivir, oral decadron, Combivent INH , Lovenox, incentive spirometry and encouraged proning. Over next few days his oxygen requirement improved, he finished his course of remdesivir, eventually he was needing 0.5 to 1 Lts to maintain his pulse oxy >88% on rest. Patient was keen on going home and was discharged home in stable condition with home oxygen and recommended to wean off as able. Patient was sent home on oral dexamethasone and Combivent. Patient was fiven instructions to return if his breathing or oxygen requirement gets worse. Patient is to follow up with his pcp upon dc. Diagnosis: Stroke: No - Discharge Data Discharge Date: 05/24/21 Discharge Disposition: Home, Self-Care 01 Condition: Good - Referral to Home Health Primary Care Physician: PCP None - Discharge Diagnosis/Problem(s) (1) COVID SNOMED Code(s): 217672244 ICD Code: U07.1 - COVID-19 Status: Acute (2) Hypoxia SNOMED Code(s): 761343631 ICD Code: R09.02 - HYPOXEMIA Status: Acute - Patient Instructions Diet: Heart Healthy Diet Activity: As Tolerated Driving: May Drive Today Showering/Bathing: May Shower Notify Provider of: Fever, Increased Pain, Swelling and Redness, Drainage, Nausea and/or Vomiting - Discharge Plan *PRESCRIPTION DRUG MONITORING PROGRAM REVIEWED*: Not Applicable *COPY OF PRESCRIPTION DRUG MONITORING REPORT IN PATIENT TL: Not Applicable Prescriptions/Med Rec: guaiFENesin [Adult Tussin Chest Congestion] 5 ml PO Q6H PRN #1 bottle PRN Reason: Cough Albuterol/Ipratropium [Combivent Respimat] 4 gm IH Q4H PRN #1 aer.w.adap PRN Reason: Shortness Of Breath dexAMETHasone [Dexamethasone] 6 mg PO DAILY #9 tablet Home Medications: Home Meds amLODIPine [Norvasc] 2.5 mg PO DAILY 05/20/21 [History] Albuterol/Ipratropium [Combivent Respimat] 4 gm IH Q4H PRN #1 aer.w.adap 05/24/21 [Rx] dexAMETHasone [Dexamethasone] 6 mg PO DAILY #9 tablet 05/24/21 [Rx] guaiFENesin [Adult Tussin Chest Congestion] 5 ml PO Q6H PRN #1 bottle 05/24/21 [Rx] Patient Handouts: Ipratropium; Albuterol Inhalation [place] (Combivent Respimat), COVID-19, COVID-19 Vaccine Information, 10 Things You Can Do to Manage Your COVID-19 Symptoms at Home - [facility] (03/23/2020), Guaifenesin oral solution and syrup, COVID-19: How to Protect Yourself and Others - [facility], Dexamethasone tablets Referrals: PCP,None [Primary Care Provider] - - Discharge Summary/Plan Comment DC Time >30 min.: Yes Total # of Minutes for Discharge Time: arrnaging home oxygen - Patient Data Vitals - Most Recent: Last Vital Signs Temp 36.6 C 05/24/21 12:57 Pulse 75 05/24/21 12:57 Resp 18 05/24/21 08:18 BP 131/75 05/24/21 12:57 Pulse Ox 93 L 05/24/21 12:57 Weight - Most Recent: 73.709 kg I&O - Last 24 hours: Intake & Output 05/23/21 05/24/21 05/24/21 22:59 06:59 14:59 Intake Total 1100 500 Output Total 1150 600 Balance -50 -100 Lab Results - Last 24 hrs: Laboratory Results - last 24 hr 05/24/21 05/24/21 Range/Units 05:10 05:10 WBC 12.33 H (4.0-11.0) K/uL RBC 4.45 L (4.50-5.90) M/uL Hgb 13.3 (13.0-17.0) g/dL Hct 38.7 (38.0-50.0) % MCV 87.0 (80.0-98.0) fL MCH 29.9 (27.0-32.0) pg MCHC 34.4 (31.0-37.0) g/dL RDW Std Deviation 43.5 (28.0-62.0) fl RDW Coeff of Luh 14 (11.0-15.0) % Plt Count 377 (150-400) K/uL MPV 9.90 (7.40-12.00) fL Neut % (Auto) 85.2 H (48.0-80.0) % Lymph % (Auto) 5.8 L (16.0-40.0) % [place] % (Auto) 9.0 (0.0-15.0) % Eos % (Auto) 0.0 (0.0-7.0) % Baso % (Auto) 0.0 (0.0-1.5) % Neut # (Auto) 10.5 H (1.4-5.7) K/uL Lymph # (Auto) 0.7 (0.6-2.4) K/uL [place] # (Auto) 1.1 H (0.0-0.8) K/uL Eos # (Auto) 0.0 (0.0-0.7) K/uL Baso # (Auto) 0.0 (0.0-0.1) K/uL Nucleated RBC % 0.0 /100WBC Nucleated RBCs # 0 K/uL Sodium 134 L (136-148) mmol/L Potassium 4.9 (3.5-5.1) mmol/L Chloride 100 (98-107) mmol/L Carbon Dioxide 27.2 (21.0-32.0) mmol/L BUN 23 H (7.0-18.0) mg/dL Creatinine 1.1 (0.8-1.3) mg/dL Est Cr Clr Drug Dosing 60.93 mL/min Estimated GFR (MDRD) > 60.0 ml/min Glucose 169 H (74-106) mg/dL Calcium 7.7 L (8.5-10.1) mg/dL Total Bilirubin 0.3 (0.2-1.0) mg/dL AST 41 H (15-37) IU/L ALT 69 H (14-63) IU/L Alkaline Phosphatase 76 (46-116) U/L Total Protein 5.8 L (6.4-8.2) g/dL Albumin 2.5 L (3.4-5.0) g/dL Globulin 3.3 (2.6-4.0) g/dL Albumin/Globulin Ratio 0.8 L (0.9-1.6) Med Orders - Current: Current Medications Acetaminophen (Acetaminophen 325 Mg Tab) 650 mg PO Q4H PRN PRN Reason: Pain (Mild 1-3)/fever Amlodipine Besylate (Amlodipine 2.5 Mg Tab) 2.5 mg PO DAILY [facility] Last Admin: 05/24/21 08:18 Dose: 2.5 mg Documented by: Dexamethasone (Dexamethasone 4 Mg Tab) 6 mg PO DAILY [facility] Last Admin: 05/24/21 08:18 Dose: 6 mg Documented by: Enoxaparin Sodium (Enoxaparin 40 Mg/0.4 Ml Syringe) 40 mg SUBCUT Q24H [facility] Last Admin: 05/23/21 17:00 Dose: 40 mg Documented by: Guaifenesin/Codeine Phosphate (Codeine/Guaifenesin 10-100 Mg/5 Ml Syrup 5 Ml Cup) 5 ml PO Q4H PRN PRN Reason: Cough Last Admin: 05/21/21 21:03 Dose: 5 ml Documented by: Remdesivir 100 mg/ Sodium (Chloride) 100 mls @ 100 mls/hr IV Q24H [facility] Stop: 05/24/21 13:59 Last Admin: 05/24/21 13:01 Dose: 100 mls/hr Documented by: Discontinued Medications Dexamethasone (Dexamethasone 10 Mg/Ml Sdv) 10 mg IVPUSH ONETIME ONE Stop: 05/20/21 11:30 Last Admin: 05/20/21 12:14 Dose: 10 mg Documented by: Remdesivir 200 mg/ Sodium (Chloride) 250 mls @ 250 mls/hr IV ONETIME ONE Stop: 05/20/21 18:29 Last Admin: 05/20/21 18:54 Dose: Not Given Documented by: Remdesivir 100 mg/ Sodium (Chloride) 100 mls @ 100 mls/hr IV Q24H [facility] Stop: 05/24/21 17:59 Last Admin: 05/23/21 17:02 Dose: 100 mls/hr Documented by: Sodium Chloride (Normal Saline) 500 mls @ 125 mls/hr IV .BOLUS ONE Stop: 05/20/21 20:59 Last Admin: 05/20/21 17:58 Dose: 125 mls/hr Documented by: Remdesivir 200 mg/ Sodium (Chloride) 250 mls @ 250 mls/hr IV ONETIME ONE Stop: 05/20/21 20:59 Last Admin: 05/20/21 19:49 Dose: 250 mls/hr Documented by:
== END 2021-05-24 15:45 | disposition home or self-care (01) | DRG 177 ==
LOC: MW.ED 10:47 → MW.MS 12:57
PROVIDERS: ADMIT Internal Medicine; ATTEND Internal Medicine
PROC: XW033E5 Introduction of Remdesivir Anti-infective into Peripheral Vein, Percutaneous Approach, New Technology Group 5 (ICD-10-PCS; principal; 2021-05-20)
PROC: 3E0333Z Introduction of Anti-inflammatory into Peripheral Vein, Percutaneous Approach (ICD-10-PCS; 2021-05-20)
DX: U07.1 COVID-19 (principal); R09.02 Hypoxemia; J12.82 Pneumonia due to coronavirus disease 2019; J96.01 Acute respiratory failure with hypoxia; H91.90 Unspecified hearing loss, unspecified ear; I10 Essential (primary) hypertension; Z88.0 Allergy status to penicillin; Z79.899 Other long term (current) drug therapy; Z87.891 Personal history of nicotine dependence
CPT/HCPCS: 36415; 71045; 80053; 83690; 83735; 84100; 84484; 85025; 93005; 96374; 99285; J1100; U0002; 93010; 99283; A9270-GY; J1650; J7040; J7050; J8540